=== PATIENT | female | born 1995 | race African-American/Black ===

== ENCOUNTER 2019-07-07 08:46 | Inpatient (IN) | payer BC, MEDICAID ==
[~2019-07-07] VITALS: Ht 177.8 cm; Wt 157.3 kg
[2019-07-14] VITALS (52 sets, daily range): BP systolic 106–147; BP diastolic 53–89; PULSE 74–100; TEMP 97.7–99
[2019-07-14] MEDS ORDERED: PRENATAL TABLET PO (07:17)
[2019-07-14] MEDS ORDERED: ZOLOFT 100MG100 MG PO (07:17)
[2019-07-14] MEDS ORDERED: CALCIUM CARBON650 M2 (07:17)
--- NOTE | 2019-07-14 07:30 | NUR ---
0700- Pt arrives on unit ambulatory for scheduled induction, FOB, Jose Alejandro with Pt. Pt into bathroom, changes into gown. 0707- Pt into bed, EFM and TOCO on. Assessment completed. VSS. 0725- IV start, labs drawn. LR infusing per order.
[2019-07-14 08:33] LABS: RED BLOOD COUNT 3.95 M/mm3 (4.10-5.30)
[2019-07-14 08:34] LABS: BASO % 0.2 % (0.0-2.0); EOS # 0.2 (0.0-0.7); EOS % 1.7 % (0-4.0); GRAN # 7.9 (1.4-6.5); GRAN % 71.1 % (42.2-75.2); HEMOGLOBIN 10.6 g/dl (12.5-16.0); LYMPH # 2.1 (1.2-3.4); LYMPH % 18.6 % (20.0-51.0); MEAN CELL VOLUME 83 fl (80.0-100.0); MEAN CORPUSCULAR HEMOGLOBIN 27 pg (27.0-31.0); MEAN CORPUSCULAR HGB CONC 33 g/dl (33.0-37.0); MEAN PLATELET VOLUME 10.4 fl (7.4-10.4); MONO # 0.9 (0.1-0.6); MONO % 7.9 % (1.7-9.3); PLATELET COUNT 297 K/mm3 (130-400); REDCELL DISTRIBUTION WIDTH-CV 15.8 % (11.5-14.5)
[2019-07-14 08:40] LABS: HEMATOCRIT 32.6 % (37.0-47.0)
--- NOTE | 2019-07-14 09:30 | NUR ---
0914- Dr Schuler at bedside, discusses plan of care and induction. Questions answered. 0915- Bedside US completed by MD to verify position, noted to be vertex. 0917- SVE by , attempted to SROM but no fluid noted. Will monitor for any LOF.
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
--- NOTE | 2019-07-14 12:15 | NUR ---
1203- FHR deceleration noted down to 70 bpm. Pt repositioned to LL. Siobhan RN at bedside to assist. O2 sat monitor applied to mother and tracing on strip. Pitocin off. FHR difficult to find with EFM due to maternal position. SVE by this RN, gush of clear fluid noted with exam. O2 on at 10L via mask. 1210- Scalp electrode placed by this RN, FHR 100 and increased quickly over 120 bpm. Pt reassured, questions encouraged.
--- NOTE | 2019-07-14 12:45 | NUR ---
1222- Maternal BS 90. 1232- Dr Schuler at bedside after reviewing FHR tracing at nurses station. Discussed decel and plan of care with Pt, Questions encouraged, Pt denies at this time. 1235- Pitocin restarted at 2mu per MD verbal order. 1238- Scalp electrode off. This RN attempts to replace FSE but unable due to posterior cervix and head high in pelvis. FHR tracing with EFM. 1244- Dr Schuler to bedside, attempted to place FSE also without success. Will continue with EFM for now.
--- NOTE | 2019-07-14 18:00 | NUR ---
1734- Pt up to bathroom, states she may need to have BM. Instructed to press call light when back in bed. Pt verbalizes understanding.
--- NOTE | 2019-07-14 18:30 | NUR ---
Yuval DIRECTOR OF CATH LAB into room for epidural placement, see anesthesia record for dosing and placement information. Pt moves to edge of bed for placement, difficult to trace FHT's and contractions r/t pt's body habitus.
[2019-07-15] VITALS (16 sets, daily range): BP systolic 92–143; BP diastolic 51–82; PULSE 81–100; TEMP 97.4–98.9
--- NOTE | 2019-07-15 02:00 | NUR ---
SVE with bloody show but no cervical change. To L side with peanut ball
--- NOTE | 2019-07-15 03:10 | NUR ---
Pt requests position change. SVE Complete. Dr Schuler called to come. NSY notified.
--- NOTE | 2019-07-15 03:15 | NUR ---
FSE off with SVE, external FHR monitor held in place. 323 Dr Schuler into room, pt prepped for delivery, [address] by Dr Schuler.
--- NOTE | 2019-07-15 03:39 | NUR ---
Placenta delivers spont and intact with 3 vessel cord. Pitocin gtt to bolus rate. Vigorous fundal massage firms fundus. 0345 Perineal inspection and repair complete, pericare done. Bed together.
--- NOTE | 2019-07-15 05:15 | NUR ---
IV to INT. up to bathroom with steady gait, states "i'm not really dizzy, just tired." Unable to void at this time, performs own pericare after instruction, clean gown on and to room via wheelchair.
--- NOTE | 2019-07-15 10:04 | NUR ---
Initial visit; Patient thanked Clinical Lab Scientist for offering congratulations and God's blessings for the of her son. Clinical Lab Scientist thanked mom for choosing [facility].
[2019-07-16] MEDS ORDERED: IBU600 MG PO (07:48)
[2019-07-16] MEDS ORDERED: PERCOCET 325 MG1 TA2 PO (07:49)
[2019-07-16 07:55] VITALS: BP 126/85; PULSE 85; TEMP 97.9
[2019-07-16 07:55] LABS: HEMATOCRIT 30.7 % (37.0-47.0); HEMOGLOBIN 9.9 g/dl (12.5-16.0)
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
== END 2019-07-16 13:20 | disposition home or self-care (01) | DRG 807 ==
LOC: LDR 07-14 06:25 → OB 07-14 06:51 → LDR 07-14 06:51 → OB 07-15 05:45
PROVIDERS: ADMIT Obstetrics & Gynecology
PROC: 10E0XZZ Delivery of Products of Conception, External Approach (ICD-10-PCS; principal; 2019-07-14)
PROC: 3E033VJ Introduction of Other Hormone into Peripheral Vein, Percutaneous Approach (ICD-10-PCS; 2019-07-14)
PROC: 10907ZC Drainage of Amniotic Fluid, Therapeutic from Products of Conception, Via Natural or Artificial Opening (ICD-10-PCS; 2019-07-14)
PROC: 0HQ9XZZ Repair Perineum Skin, External Approach (ICD-10-PCS; 2019-07-14)
DX: O99.344 Other mental disorders complicating childbirth (principal); Z37.0 Single live birth; O99.214 Obesity complicating childbirth; E66.9 Obesity, unspecified; O99.334 Smoking (tobacco) complicating childbirth; F32.9 Major depressive disorder, single episode, unspecified; F41.9 Anxiety disorder, unspecified; O70.1 Second degree perineal laceration during delivery; Z3A.39 39 weeks gestation of pregnancy
CPT/HCPCS: J2590; J7120

== ENCOUNTER 2020-06-19 19:58 | Observation (INO) | payer MEDICAID ==
[~2020-06-19] VITALS: Ht 180.3 cm; Wt 145.5 kg
[2020-06-19] VITALS (11 sets, daily range): BP systolic 100–140; BP diastolic 72–95; PULSE 84–101; TEMP 99
[~2020-06-19 19:58] MED LIST: CALCIUM CARBON650 M2; IBU600 MG PO; PERCOCET 325 MG1 TA2 PO; PRENATAL TABLET PO; ZOLOFT 100MG100 MG PO
[2020-06-19 20:17] LABS: BASO % 0.2 % (0.0-2.0); EOS # 0.3 (0.0-0.7); EOS % 2.6 % (0-4.0); GRAN # 8.9 (1.4-6.5); GRAN % 71.4 % (42.2-75.2); LYMPH # 2.3 (1.2-3.4); LYMPH % 18.7 % (20.0-51.0); MEAN CELL VOLUME 82 fl (80.0-100.0); MEAN CORPUSCULAR HEMOGLOBIN 27 pg (27.0-31.0); MEAN CORPUSCULAR HGB CONC 32 g/dl (33.0-37.0); MEAN PLATELET VOLUME 9.9 fl (7.4-10.4); MONO # 0.8 (0.1-0.6); MONO % 6.7 % (1.7-9.3); PLATELET COUNT 358 K/mm3 (130-400); RED BLOOD COUNT 4.15 M/mm3 (4.10-5.30); REDCELL DISTRIBUTION WIDTH-CV 15.8 % (11.5-14.5)
[2020-06-19 20:26] LABS: CALCIUM 9.5 mg/dL (8.4-10.2); CREATININE, serum 0.47 (0.52-1.25); POTASSIUM 3.6 mmol/L (3.4-5.0)
[2020-06-19] MEDS ORDERED: CALCIUM CARBON650 M2 (21:26)
--- NOTE | 2020-06-19 22:00 | NUR ---
Pt brought to OR by karuna from ER at this time. Pt prepped for D&C. Roles in OR assisting with prep. 2230: Pt to PACU for futher evaluation. 0030: Pt ambulatory to bathroom to void. Plan of care explained. Pericare explained and provided. [place] given and encouraged to drink fluids.
[2020-06-19] MEDS ORDERED: METHERGINE0.2 MG/TAB PO (22:48)
[2020-06-19] MEDS ORDERED: IBU600 MG PO (22:48)
[2020-06-19] MEDS ORDERED: DOXYCYCLINE 10100 MG PO (22:49)
[2020-06-20] VITALS: BP 128/78; PULSE 84
[2020-06-20 00:15] VITALS: BP 129/79; PULSE 84
[2020-06-20 00:45] VITALS: BP 117/74
[2020-06-20 01:15] VITALS: BP 118/80; TEMP 99
[2020-06-20 05:30] VITALS: BP 115/59; PULSE 79; TEMP 98
[2020-06-20 07:06] VITALS: BP 118/70; PULSE 88; TEMP 98
[2020-06-20 07:29] LABS: BASO % 0.3 % (0.0-2.0); EOS # 0.4 (0.0-0.7); EOS % 4.2 % (0-4.0); GRAN # 5.4 (1.4-6.5); GRAN % 62.9 % (42.2-75.2); LYMPH # 2.2 (1.2-3.4); LYMPH % 25.9 % (20.0-51.0); MEAN CELL VOLUME 83 fl (80.0-100.0); MEAN CORPUSCULAR HEMOGLOBIN 27 pg (27.0-31.0); MEAN CORPUSCULAR HGB CONC 32 g/dl (33.0-37.0); MONO # 0.6 (0.1-0.6); MONO % 6.5 % (1.7-9.3); PLATELET COUNT 313 K/mm3 (130-400); RED BLOOD COUNT 3.73 M/mm3 (4.10-5.30); REDCELL DISTRIBUTION WIDTH-CV 15.8 % (11.5-14.5)
[2020-06-20 07:30] LABS: HEMATOCRIT 30.9 % (37.0-47.0)
[2020-06-20] MEDS ORDERED: PERCOCET 325 MG1 TA2 PO (08:24)
--- NOTE | 2020-06-20 12:00 | NUR ---
IV site x2 d/c. D/C instructions given. No questions or concerns at this time. Pt leaves unit ambulatory with this RN and mother.
== END 2020-06-20 12:00 | disposition home or self-care (01) ==
LOC: COL.ER 19:58 → OB 21:50
PROVIDERS: Emergency Medicine; Obstetrics & Gynecology; ADMIT Obstetrics & Gynecology
DX: O03.4 Incomplete spontaneous abortion without complication (principal); N93.9 Abnormal uterine and vaginal bleeding, unspecified; F17.200 Nicotine dependence, unspecified, uncomplicated; Z88.0 Allergy status to penicillin; Z91.013 Allergy to seafood
CPT/HCPCS: G0378; J2704; J3010; J7120